=== PATIENT | male | born 1960 | race Caucasian/White ===

== ENCOUNTER 2017-06-30 13:58 | Emergency (ER) | payer BC ==
[~2017-06-30] VITALS: Ht 180.3 cm; Wt 86.0 kg
[2017-06-30 14:18] VITALS: BP 105/68; PULSE 71; RESP 16; TEMP 98; O2SAT 98
[2017-06-30] MEDS ORDERED: TETANUS/DIPHTHERIA TOXOID ADULT 0.5 ML VIAL IM ONE (14:30)
[2017-06-30] MEDS ORDERED: BACT800T5 PO (14:30)
[2017-06-30] MEDS ORDERED: SULFAMETHOXAZOLE-TRIMETHOPRIM DS 800-160 MG TAB PO ONE (14:30)
[2017-06-30] MEDS ORDERED: DICL75TA PO (14:30)
--- NOTE | 2017-06-30 14:34 | PD ---
HPI Chief Complaint: Skin Problem Time Seen by Provider: 14:20 Travel History International Travel<30 days: No Contact w/Intl Traveler<30days: No Traveled to known affect area: No History of Present Illness HPI 56-year-old male that presents to the ED for evaluation of infection to his right ring finger. Per patient she's had this for almost 5 days now. No known injury. states that one of his friends attempted to [place] and was able to get yellow pus out of it. Has not drained for the past 2 days but continues to be somewhat painful for the patient. Patient's is having swelling and redness in the area. Denies any fevers chills or sweats. No other medical issues. Unknown last tetanus booster. [facility] Social History Alcohol Use: Yes (SOCIALLY) Tobacco Use: No Substance Use: No Allergies-Medications (Allergen,Severity, Reaction): Coded Allergies: No Known Allergies (Verified Allergy, Unknown, 06/30/17) Reported Meds & Prescriptions Reported Meds & Active Scripts Active Diclofenac Sodium DR (Diclofenac Sodium) 75 Mg Tabdr 75 Mg PO BID PRN Bactrim DS (Sulfamethoxazole-Trimethoprim) 800-160 Mg Tab 1 Tab PO BID 14 Days Review of Systems Except as stated in HPI: all other systems reviewed are Neg Physical Exam Narrative GENERAL: SKIN: Warm and dry. HEAD: Atraumatic. Normocephalic. EYES: Pupils equal and round. No scleral icterus. No injection or drainage. ENT: No nasal bleeding or discharge. Mucous membranes pink and moist. NECK: Trachea midline. No JVD. CARDIOVASCULAR: Regular rate and rhythm. RESPIRATORY: No accessory muscle use. Clear to auscultation. Breath sounds equal bilaterally. GASTROINTESTINAL: Abdomen soft, non-tender, nondistended. Hepatic and splenic margins not palpable. MUSCULOSKELETAL: Extremities without clubbing, cyanosis, or edema. No obvious deformities. Full range of motion of all fingers. Patient has an area purulence and erythema noted on the dorsal aspect of the nail bed of the fourth digit. Patient has an area of purulence coming out of it. Erythematous and warm to the touch. Patient able to move the finger fully. NEUROLOGICAL: Awake and alert. No obvious cranial nerve deficits. Motor grossly within normal limits. Five out of 5 muscle strength in the arms and legs. Normal speech. PSYCHIATRIC: Appropriate mood and affect; insight and judgment normal. Data Data Last Documented VS Vital Signs Date Time Temp Pulse Resp B/P (MAP) Pulse Ox O2 Delivery O2 Flow Rate FiO2 06/30/17 14:18 98.0 71 16 105/68 (80) 98 Orders Orders Wound Culture And Gram Stain (06/30/17 14:29) Wound Care (06/30/17 14:29) Tetanus/Diphtheria Tox Adult (Tetanus/Di (06/30/17 14:30) Sulfamet-Trimeth Ds 800-160 Mg (Bactrim (06/30/17 14:30) MDM Medical Decision Making Medical Screen Exam Complete: Yes Emergency Medical Condition: Yes Medical Record Reviewed: Yes Differential Diagnosis Paronychia versus abscess versus cellulitis Narrative Course 56-year-old male that presents to the ED for evaluation of infection to the ring finger. Patient was properly examined and was found to have signs and symptoms consistent with paronychia. Area is draining. With gentle pressure purulence was obtained and culture was done. Wound care was done. Patient was given first dose of Bactrim here. Given tetanus booster. Given prescription for diclofenac sodium and Bactrim. Told to follow with PCP. See ED worsening symptoms. Ice or warm compresses. Diagnosis Primary Impression: Paronychia of finger Qualified Codes: L03.011 - Cellulitis of right finger Patient Instructions: General Instructions Additional Instructions: Take medication as prescribed. Keep area nice and clean. He can apply antibiotic ointment to the wound. It should be draining for the next couple of days. Close follow-up with PCP. See ED worsening symptoms. Med/Other Pt SpecificInfo: Prescription(s) given Scripts Diclofenac Sodium (Diclofenac Sodium DR) 75 Mg Tabdr 75 MG PO BID Y for PAIN SCALE 1 TO 10, #20 TAB 0 Refills Prov: Gopal Fuentes MD 06/30/17 Sulfamethoxazole-Trimethoprim (Bactrim DS) 800-160 Mg Tab 1 TAB PO BID for Infection for 14 Days, TAB 0 Refills Prov: Gopal Fuentes MD 06/30/17 Disposition: 01 DISCHARGE HOME Condition: Stable Oscar Bernstein Jun 30, 2017 14:34
== END 2017-06-30 15:00 | disposition home or self-care (01) ==
LOC: PHEFT 13:58
DX: L03.011 Cellulitis of right finger (principal)
CPT/HCPCS: 86403; 87070; 87205; 90471; 90714